=== PATIENT | female | born 1980 | race African-American/Black ===

== ENCOUNTER 2019-01-26 07:08 | Inpatient (IN) ==
[2019-01-26] MEDS ORDERED: miSOPROStol 200 MCG TABLET ONE (07:20)
[2019-01-26] MEDS ORDERED: OXYTOCIN/LR 20 UNIT/1,000 ML BAG IV ONE ×2 (07:20→09:17)
[2019-01-26] MEDS ORDERED: TRANEXAMIC ACID 1,000 MG/10 ML VIAL ONE (07:20)
[2019-01-26] MEDS ORDERED: METHYLERGONOVINE 0.2 MG/1 ML AMP ONE (07:20)
[2019-01-26] MEDS ORDERED: CARBOPROST TROMETHAMINE 250 MCG/ML AMP IM ONE (07:21)
[2019-01-26] MEDS ORDERED: LIDOCAINE 1% 50 ML VIAL ONE (07:21)
[2019-01-26] MEDS ORDERED: ONDANSETRON 4 MG/2 ML VIAL IV PRN (07:26)
[2019-01-26] MEDS ORDERED: LACTATED RINGERS 1,000 ML IV SCH (07:30)
[2019-01-26 08:03] LABS: Basophils % 0.3 % (0.0-0.8); Eosinophils # 0.1 10*3/uL (0.0-0.87); Eosinophils % 0.5 % (0.00-10.9); Hematocrit 29.1 VOL% (35.7-47.0); Hemoglobin 8.6 GM/DL (12.0-16.0); Immature Granulocytes % 2.5 %; Lymphocytes # 1.2 10*3/uL (1.4-4.0); Lymphocytes % 9.9 % (21.3-54.2); Mean Corpuscular HGB Conc 29.6 GM/DL (32-36); Mean Corpuscular Volume 80.4 FL (87-102); Mean Platelet Volume 10.2 FL (9.6-12.0); Monocytes % 4.5 % (1.7-12.7); Neutrophils % 82.3 % (38.7-73.9); Platelet Count 191 T/CUMM (130-400); Red Blood Count 3.62 MC/CUMM (3.8-5.5); Red Cell Distribution Width 17.5 % (9.3-17.3)
[2019-01-26 08:34] LABS: Alanine Aminotransferase 10 U/L (13-56); Albumin 2.3 G/DL (3.4-5.0); Alkaline Phosphatase 156 U/L (45-117); Aspartate Amino Transferase 7 U/L (0-37); Bilirubin,Total < 0.39 MG/DL (0.2-1.0); Blood Urea Nitrogen 10 MG/DL (7-18); Calcium 8.8 MG/DL (8.5-10.1); Glucose 113 MG/DL (74-106); Osmolality,Calculated 272.8 MOS/KG (273-304); Total Protein 7.4 G/DL (6.4-8.3)
[2019-01-26 09:13] LABS: Barbiturates Screen,Urine Negative (Negative); Benzodiazepines Screen,Urine Negative (Negative); Cannabinoid Screen,Urine Negative (Negative); Opiate Screen,Urine Negative (Negative); Phencyclidine Screen,Urine Negative (Negative)
[2019-01-26 09:19] LABS: HIV Antigen/Antibody Result Nonreactive (Nonreactive); Hepatitis B Surface Ag Quant < 0.10 Index; Hepatitis B Surface Ag Result Negative (Negative); Rubella Antibody IgG 13.3 IU/ML
[2019-01-26] MEDS ORDERED: IBUPROFEN 800 MG TABLET PO PRN (18:16)
[2019-01-27 03:51] LABS: Basophils % 0.2 % (0.0-0.8); Eosinophils # 0.2 10*3/uL (0.0-0.87); Eosinophils % 1.2 % (0.00-10.9); Hematocrit 26.6 VOL% (35.7-47.0); Hemoglobin 7.8 GM/DL (12.0-16.0); Immature Granulocytes % 1.5 %; Immature Granulocytes Absolute 0.19 #; Lymphocytes # 1.7 10*3/uL (1.4-4.0); Mean Corpuscular HGB Conc 29.3 GM/DL (32-36); Mean Corpuscular Volume 80.1 FL (87-102); Mean Platelet Volume 10.4 FL (9.6-12.0); Monocytes % 4.8 % (1.7-12.7); Neutrophils % 78.3 % (38.7-73.9); Platelet Count 183 T/CUMM (130-400); Red Blood Count 3.32 MC/CUMM (3.8-5.5); Red Cell Distribution Width 17.6 % (9.3-17.3); White Blood Count 12.4 T/CUMM (4-12)
[2019-01-27 08:16] VITALS: BP 121/79
[2019-01-27] MEDS ORDERED: ACETAMINOPHEN 325 MG TABLET PO PRN (09:18)
[2019-01-27] MEDS ORDERED: DIPH/TET/ACEL PERT BOOSTER VACCINE 0.5 ML VIAL IM ONE (09:18)
[2019-01-27] MEDS ORDERED: WITCH HAZEL PADS 100/JAR TOP PRN (09:18)
[2019-01-27] MEDS ORDERED: BISACODYL 10 MG SUPP RECTAL PRN (09:18)
[2019-01-27] MEDS ORDERED: BENZOCAINE 20%/MENTHOL 0.5% SPRAY 56 GM CAN TOP PRN (09:18)
[2019-01-27] MEDS ORDERED: LANOLIN 50% CREAM 0.3 OZ TUBE TOP PRN (09:18)
[2019-01-27] MEDS ORDERED: ONDANSETRON 4 MG/2 ML VIAL IV PRN (09:18)
[2019-01-27] MEDS ORDERED: oxyCODONE/ACETAMINOPHEN 5-325 MG TABLET PO PRN ×2 (09:18)
[2019-01-27] MEDS ORDERED: IBUPROFEN 800 MG TABLET PO PRN (09:18)
[2019-01-27] MEDS ORDERED: HYDROCORTISONE 2.5% RECTAL CREAM 30 GM TUBE TOP PRN (09:18)
[2019-01-27] MEDS ORDERED: DOCUSATE SODIUM 100 MG CAPSULE PO SCH (09:30)
== END 2019-01-27 13:30 | disposition home or self-care (01) | DRG 807 ==
LOC: N.LDOUT 07:08 → N.LD 07:12 → N.OB 11:39
PROVIDERS: ADMIT Obstetrics & Gynecology; ATTEND Obstetrics & Gynecology